=== PATIENT | male | born 1970 ===

== ENCOUNTER 2021-01-30 21:45 | Emergency (ER) | payer SELFPAY ==
[~2021-01-30] VITALS: Ht 175.3 cm; Wt 79.0 kg
[2021-01-30 22:18] VITALS: BP 158/95
== END 2021-01-30 23:02 ==
LOC: ED 22:00
DX: I10 Essential (primary) hypertension (principal); F10.120 Alcohol abuse with intoxication, uncomplicated; F17.200 Nicotine dependence, unspecified, uncomplicated; Y90.0 Blood alcohol level of less than 20 mg/100 ml
CPT/HCPCS: 99283